=== PATIENT | male | born 1960 | race Hispanic/Latino ===

== ENCOUNTER 2021-04-26 05:38 | Inpatient (IN) | payer OTHER ==
[2021-04-26 06:21] LABS: #Eosinphils 0.2 10x3/uL (0.0-0.5); #Monocytes 0.7 10x3/uL (0.0-1.1); #Neutrophils 7.7 10x3/uL (1.5-8.4); %Basophils 0.2 % (0.0-2.0); %Eosinophils 2.1 % (0.0-6.0); %Monocytes 7.5 % (0.0-10.0); %Neutrophils 77.7 % (40.0-75.0); Hemoglobin 10.3 g/dL (13.5-17.5); Mean Corpuscular Hemoglobin 31.4 pg (27.0-33.0); Mean Corpuscular Volume 87.2 fl (81.2-95.1); Mean Platelet Volume 10.2 fl (7.4-10.4); Platelet Count 79 10x3/uL (150-450); RBC Distribution Width 15.3 % (11.5-14.5); Red Blood Cell (RBC) Count 3.28 10x6/uL (4.32-5.72); White Blood Cell (WBC) Count 9.9 10x3/uL (3.5-10.5)
[2021-04-26] MEDS ORDERED: Ketorolac Tromethamine 30 MG/ML VIAL ONE (06:24)
[2021-04-26 06:34] LABS: ALT (SGPT) 23 U/L (8-55); AST (SGOT) 24 U/L (5-34); Alkaline Phosphatase 151 U/L (40-110); Anion Gap 15 mmol/L (10-20); BUN (Urea Nitrogen) 18 mg/dL (8.4-25.7); Bilirubin, Total 2.7 mg/dL (0.2-1.2); CK (CPK) 49 U/L (30-200); Calc. Creatinine Clearance 0 mL/min (70-130); Calcium 8.5 mg/dL (7.8-10.44); Carbon Dioxide 17 mmol/L (22-29); Chloride 105 mmol/L (98-107); Globulin 3.9 g/dL (2.4-3.5); Glucose 201 mg/dL (70-105); Potassium 3.9 mmol/L (3.5-5.1); Protein, Total 6.9 g/dL (6.0-8.3); Sodium 133 mmol/L (136-145)
[2021-04-26] MEDS ORDERED: cefTRIAXone\\ROCEPHIN 1 GM VIAL ONE ×2 (06:48→07:45)
[2021-04-26] MEDS ORDERED: Insulin Regular 300 UNITS/3 ML VIAL ONE (08:12)
[2021-04-26 08:29] LABS: SARS-CoV-2 NAA Rapid Test Not Detected (NotDetected)
[2021-04-26 09:14] LABS: Lactic Acid 2.3 mmol/L (0.5-2.2)
[2021-04-26] MEDS ORDERED: Dextrose 50% Abboject 50 ML SYRINGE SLOW IVP PRN (12:51)
[2021-04-26] MEDS ORDERED: Dextrose 5% in Water 1,000 ML IV PRN (12:51)
[2021-04-26] MEDS ORDERED: Benzonatate 100 MG CAP PO PRN (12:52)
[2021-04-26] MEDS ORDERED: Electrolyte Replacement Protocol 1 EACH FS SCH (13:00)
[2021-04-26] MEDS ORDERED: Sodium Chloride 0.9% 1,000 ML IV SCH (13:00)
[2021-04-26] MEDS: Furosemide 20 MG TAB PO SCH (16:57)
[2021-04-26 17:12] VITALS: BMI 31.1
[2021-04-26] MEDS: HumaLOG 300 UNITS/3 ML VIAL SC PRN (21:04)
[2021-04-27] MEDS: HumaLOG 300 UNITS/3 ML VIAL SC PRN ×5 (00:04→22:36)
[2021-04-27 04:21] LABS: Lactic Acid 2.2 mmol/L (0.5-2.2)
[2021-04-27 04:24] LABS: ALT (SGPT) 18 U/L (8-55); AST (SGOT) 21 U/L (5-34); Albumin 2.7 g/dL (3.5-5.0); Alkaline Phosphatase 132 U/L (40-110); Anion Gap 13 mmol/L (10-20); BUN (Urea Nitrogen) 13 mg/dL (8.4-25.7); Bilirubin, Total 1.9 mg/dL (0.2-1.2); Calc. Creatinine Clearance 115 mL/min (70-130); Carbon Dioxide 18 mmol/L (22-29); Cardiac Risk 2.9 (Less than 4.5); Chloride 107 mmol/L (98-107); Cholesterol 88 mg/dl (< 200 Desired); Globulin 3.4 g/dL (2.4-3.5); Glucose 285 mg/dL (70-105); HDL Cholesterol 30 mg/dL (>60 Neg Risk); LDL Cholesterol, Calculated 42 mg/dL; Magnesium 1.3 mg/dL (1.6-2.6); Potassium 3.7 mmol/L (3.5-5.1); Protein, Total 6.1 g/dL (6.0-8.3); Sodium 134 mmol/L (136-145); Triglycerides 78 mg/dL (Less than 150)
[2021-04-27 04:28] LABS: Phosphorus 1.9 mg/dL (2.3-4.7)
[2021-04-27] MEDS ORDERED: Magnesium Sulfate 4 GM in Sodium Chloride 0.9% 250 ML 250 ML IVPB SCH ×2 (05:00→09:15)
[2021-04-27] MEDS: PHOS-NAK 1 PKT PACK PO SCH ×2 (05:23→09:45)
[2021-04-27] MEDS: Furosemide 20 MG TAB PO SCH ×2 (09:43→13:20)
[2021-04-27] MEDS: Propranolol 10 MG TAB PO SCH (09:44)
[2021-04-27] MEDS: Aspirin 81 mg Enteric Coated Tablet PO SCH (09:44)
[2021-04-27] MEDS: Doxycycline 100 MG CAP PO SCH ×2 (09:44→22:28)
[2021-04-27] MEDS: Potassium Bicarbonate/Cit Ac 20 MEQ TAB PO SCH (09:45)
[2021-04-27] MEDS: Magnesium 2 GM/50 ML 2 GM in Premix Bag 1 BAG IVPB SCH ×2 (10:07→11:57)
[2021-04-27] MEDS ORDERED: Fluconazole In NaCl,Iso-Osm 100 MG in Admixture Fee 1 EACH IVPB SCH (10:30)
[2021-04-27] MEDS ORDERED: Lantus 1000 UNITS/10 ML VIAL SC SCH (13:00)
[2021-04-27] MEDS: cefTRIAXone\\ROCEPHIN 1 GM in Sodium Chloride 0.9% 100 ML IVPB SCH (13:20)
[2021-04-27] MEDS: Fluconazole In NaCl,Iso-Osm 100 MG in Admixture Fee 1 EACH IVPB SCH (14:27)
[2021-04-27] MEDS ORDERED: metFORMIN 500 MG TAB PO SCH (17:00)
[2021-04-27] MEDS: HumaLOG 300 UNITS/3 ML VIAL SC SCH (19:00)
[2021-04-28] MEDS: HumaLOG 300 UNITS/3 ML VIAL SC PRN ×2 (05:44→16:45)
[2021-04-28] MEDS: Acetaminophen 325 MG TAB PO PRN (05:44)
[2021-04-28 09:37] LABS: ALT (SGPT) 28 U/L (8-55); AST (SGOT) 43 U/L (5-34); Albumin 2.9 g/dL (3.5-5.0); Alkaline Phosphatase 189 U/L (40-110); Anion Gap 13 mmol/L (10-20); BUN (Urea Nitrogen) 12 mg/dL (8.4-25.7); Bilirubin, Total 1.9 mg/dL (0.2-1.2); Calc. Creatinine Clearance 114 mL/min (70-130); Calcium 8.3 mg/dL (7.8-10.44); Carbon Dioxide 19 mmol/L (22-29); Chloride 104 mmol/L (98-107); Globulin 4.2 g/dL (2.4-3.5); Glucose 297 mg/dL (70-105); Magnesium 1.8 mg/dL (1.6-2.6); Potassium 4.3 mmol/L (3.5-5.1); Protein, Total 7.1 g/dL (6.0-8.3); Sodium 132 mmol/L (136-145)
[2021-04-28] MEDS: Lantus 1000 UNITS/10 ML VIAL SC SCH ×2 (09:43→21:47)
[2021-04-28] MEDS: Propranolol 10 MG TAB PO SCH (09:44)
[2021-04-28] MEDS: Aspirin 81 mg Enteric Coated Tablet PO SCH (09:44)
[2021-04-28] MEDS: Doxycycline 100 MG CAP PO SCH ×2 (09:44→21:47)
[2021-04-28] MEDS: Furosemide 20 MG TAB PO SCH ×2 (09:44→13:33)
[2021-04-28 09:48] LABS: Phosphorus 1.7 mg/dL (2.3-4.7)
[2021-04-28] MEDS: HumaLOG 300 UNITS/3 ML VIAL SC SCH ×3 (09:54→16:46)
[2021-04-28] MEDS: Potassium Bicarbonate/Cit Ac 20 MEQ TAB PO SCH (09:54)
[2021-04-28 10:14] LABS: #Eosinphils 0.5 10x3/uL (0.0-0.5); #Monocytes 0.7 10x3/uL (0.0-1.1); #Neutrophils 4.8 10x3/uL (1.5-8.4); %Basophils 0.3 % (0.0-2.0); %Eosinophils 6.7 % (0.0-6.0); %Lymphocytes 16.9 % (18.0-47.0); %Monocytes 9.8 % (0.0-10.0); %Neutrophils 66.2 % (40.0-75.0); Hemoglobin 11.3 g/dL (13.5-17.5); Mean Corpuscular HGB CONC 36.2 g/dL (32.0-36.0); Mean Corpuscular Hemoglobin 31.7 pg (27.0-33.0); Mean Corpuscular Volume 87.4 fl (81.2-95.1); Mean Platelet Volume 9.8 fl (7.4-10.4); Platelet Count 89 10x3/uL (150-450); RBC Distribution Width 15.3 % (11.5-14.5); Red Blood Cell (RBC) Count 3.57 10x6/uL (4.32-5.72); White Blood Cell (WBC) Count 7.3 10x3/uL (3.5-10.5)
[2021-04-28] MEDS ORDERED: PHOS-NAK 1 PKT PACK PO SCH (11:00)
[2021-04-28] MEDS: Fluconazole In NaCl,Iso-Osm 100 MG in Admixture Fee 1 EACH IVPB SCH (12:14)
[2021-04-28] MEDS: cefTRIAXone\\ROCEPHIN 1 GM in Sodium Chloride 0.9% 100 ML IVPB SCH (12:20)
[2021-04-28] MEDS ORDERED: Magnesium 2 GM/50 ML 2 GM in Premix Bag 1 BAG IVPB SCH (13:00)
[2021-04-28] MEDS: PHOS-NAK 1 PKT PACK PO SCH ×2 (13:34→21:47)
[2021-04-28] MEDS: Magnesium Oxide 400 MG TAB PO SCH (13:34)
[2021-04-29] MEDS: HumaLOG 300 UNITS/3 ML VIAL SC PRN ×4 (06:13→21:53)
[2021-04-29 06:17] LABS: ALT (SGPT) 27 U/L (8-55); AST (SGOT) 38 U/L (5-34); Albumin 2.7 g/dL (3.5-5.0); Alkaline Phosphatase 204 U/L (40-110); Anion Gap 14 mmol/L (10-20); BUN (Urea Nitrogen) 11 mg/dL (8.4-25.7); Bilirubin, Total 1.7 mg/dL (0.2-1.2); Calc. Creatinine Clearance 115 mL/min (70-130); Calcium 8.1 mg/dL (7.8-10.44); Carbon Dioxide 16 mmol/L (22-29); Chloride 104 mmol/L (98-107); Globulin 3.9 g/dL (2.4-3.5); Glucose 353 mg/dL (70-105); Magnesium 1.5 mg/dL (1.6-2.6); Potassium 4.6 mmol/L (3.5-5.1); Protein, Total 6.6 g/dL (6.0-8.3); Sodium 129 mmol/L (136-145)
[2021-04-29 06:36] LABS: #Eosinphils 0.5 10x3/uL (0.0-0.5); #Monocytes 0.6 10x3/uL (0.0-1.1); %Basophils 0.2 % (0.0-2.0); %Eosinophils 7.9 % (0.0-6.0); %Lymphocytes 16.4 % (18.0-47.0); %Monocytes 9.5 % (0.0-10.0); %Neutrophils 65.8 % (40.0-75.0); Hemoglobin 9.7 g/dL (13.5-17.5); Mean Corpuscular HGB CONC 35.5 g/dL (32.0-36.0); Mean Corpuscular Hemoglobin 32.1 pg (27.0-33.0); Mean Corpuscular Volume 90.4 fl (81.2-95.1); Mean Platelet Volume 9.6 fl (7.4-10.4); Platelet Count 96 10x3/uL (150-450); RBC Distribution Width 15.2 % (11.5-14.5); Red Blood Cell (RBC) Count 3.02 10x6/uL (4.32-5.72); White Blood Cell (WBC) Count 6.1 10x3/uL (3.5-10.5)
[2021-04-29 06:39] LABS: HIV (1/2) Antibody/Antigen Non-Reactive (NonReactive); HIV 1/2 INDEX 0.19 S/CO (<1.00)
[2021-04-29] MEDS ORDERED: Magnesium 2 GM/50 ML 2 GM in Premix Bag 1 BAG IVPB SCH ×2 (06:45→11:00)
[2021-04-29] MEDS: Propranolol 10 MG TAB PO SCH (09:41)
[2021-04-29] MEDS: Furosemide 20 MG TAB PO SCH ×2 (09:41→17:12)
[2021-04-29] MEDS: HumaLOG 300 UNITS/3 ML VIAL SC SCH ×3 (09:44→17:13)
[2021-04-29] MEDS: Lantus 1000 UNITS/10 ML VIAL SC SCH ×2 (09:44→21:52)
[2021-04-29] MEDS: PHOS-NAK 1 PKT PACK PO SCH ×3 (09:45→21:51)
[2021-04-29 09:54] LABS: Phosphorus 1.7 mg/dL (2.3-4.7)
[2021-04-29] MEDS: Potassium Bicarbonate/Cit Ac 20 MEQ TAB PO SCH (10:59)
[2021-04-29] MEDS: Aspirin 81 mg Enteric Coated Tablet PO SCH (10:59)
[2021-04-29] MEDS: Doxycycline 100 MG CAP PO SCH ×2 (10:59→21:52)
[2021-04-29] MEDS: cefTRIAXone\\ROCEPHIN 1 GM in Sodium Chloride 0.9% 100 ML IVPB SCH (11:38)
[2021-04-29] MEDS: Magnesium Oxide 400 MG TAB PO SCH (11:40)
[2021-04-29] MEDS: Fluconazole In NaCl,Iso-Osm 100 MG in Admixture Fee 1 EACH IVPB SCH (11:57)
[2021-04-29 16:55] LABS: HBCM Index 0.09 S/CO (0-0.79); HBSAg Index 0.24 S/CO (0-0.99); Hep A IgM AB Non-Reactive (NonReactive); Hep A IgM S/CO 0.41 S/CO (0-0.79); Hep B Surf Ag Non-Reactive S/CO (NonReactive); Hepatitis B Core IgM Abs Non-Reactive (NonReactive)
[2021-04-29 18:33] LABS: Hep C IgG Ab Reflex HepC Qnt (NonReactive); Hep C Index 13.15 S/CO (0-0.79)
[2021-04-30 03:57] LABS: #Eosinphils 0.5 10x3/uL (0.0-0.5); #Monocytes 0.5 10x3/uL (0.0-1.1); #Neutrophils 2.5 10x3/uL (1.5-8.4); %Basophils 0.2 % (0.0-2.0); %Eosinophils 11.7 % (0.0-6.0); %Monocytes 10.4 % (0.0-10.0); %Neutrophils 57.2 % (40.0-75.0); Hemoglobin 8.9 g/dL (13.5-17.5); Mean Corpuscular Hemoglobin 30.8 pg (27.0-33.0); Mean Corpuscular Volume 87.9 fl (81.2-95.1); Mean Platelet Volume 9.8 fl (7.4-10.4); Platelet Count 81 10x3/uL (150-450); RBC Distribution Width 14.8 % (11.5-14.5); Red Blood Cell (RBC) Count 2.89 10x6/uL (4.32-5.72); White Blood Cell (WBC) Count 4.4 10x3/uL (3.5-10.5)
[2021-04-30 04:12] LABS: Phosphorus 2.3 mg/dL (2.3-4.7)
[2021-04-30 04:20] LABS: ALT (SGPT) 31 U/L (8-55); AST (SGOT) 42 U/L (5-34); Albumin 2.6 g/dL (3.5-5.0); Alkaline Phosphatase 223 U/L (40-110); Anion Gap 12 mmol/L (10-20); BUN (Urea Nitrogen) 10 mg/dL (8.4-25.7); Bilirubin, Total 1.5 mg/dL (0.2-1.2); Calc. Creatinine Clearance 119 mL/min (70-130); Calcium 7.8 mg/dL (7.8-10.44); Carbon Dioxide 20 mmol/L (22-29); Chloride 104 mmol/L (98-107); Globulin 3.3 g/dL (2.4-3.5); Glucose 362 mg/dL (70-105); Magnesium 1.5 mg/dL (1.6-2.6); Potassium 4.2 mmol/L (3.5-5.1); Protein, Total 5.9 g/dL (6.0-8.3); Sodium 132 mmol/L (136-145)
[2021-04-30] MEDS ORDERED: Magnesium 2 GM/50 ML 2 GM in Premix Bag 1 BAG IVPB SCH (05:30)
[2021-04-30] MEDS: HumaLOG 300 UNITS/3 ML VIAL SC PRN ×3 (05:56→20:54)
[2021-04-30 06:53] LABS: Strep pneumo Urine Ag NEGATIVE (NEGATIVE)
[2021-04-30 06:59] LABS: Platelet Morphology Comment Appears Decreased
[2021-04-30] MEDS: Aspirin 81 mg Enteric Coated Tablet PO SCH (11:05)
[2021-04-30] MEDS: Doxycycline 100 MG CAP PO SCH ×2 (11:05→20:53)
[2021-04-30] MEDS: Propranolol 10 MG TAB PO SCH (11:05)
[2021-04-30] MEDS: PHOS-NAK 1 PKT PACK PO SCH ×3 (11:05→20:54)
[2021-04-30] MEDS: Amlodipine 5 MG TAB PO SCH (11:05)
[2021-04-30] MEDS: Lisinopril 5 MG TAB PO SCH (11:05)
[2021-04-30] MEDS: Furosemide 20 MG TAB PO SCH ×2 (11:05→13:36)
[2021-04-30] MEDS: Potassium Bicarbonate/Cit Ac 20 MEQ TAB PO SCH (11:06)
[2021-04-30] MEDS: HumaLOG 300 UNITS/3 ML VIAL SC SCH ×3 (11:06→18:33)
[2021-04-30] MEDS: Lantus 1000 UNITS/10 ML VIAL SC SCH ×2 (11:06→20:53)
[2021-04-30] MEDS: Magnesium Oxide 400 MG TAB PO SCH (13:35)
[2021-04-30] MEDS: cefTRIAXone\\ROCEPHIN 1 GM in Sodium Chloride 0.9% 100 ML IVPB SCH (15:46)
[2021-04-30 16:10] LABS: L.pneumophilia Abs <0.91 OD ratio (0.00-0.90)
[2021-04-30] MEDS: Fluconazole In NaCl,Iso-Osm 100 MG in Admixture Fee 1 EACH IVPB SCH (16:56)
[2021-04-30 23:36] LABS: QuantiFERON-TB Gold Plus POSITIVE (Negative)
[2021-05-01] MEDS: Acetaminophen 325 MG TAB PO PRN ×2 (01:16→09:29)
[2021-05-01 05:33] LABS: #Eosinphils 0.7 10x3/uL (0.0-0.5); #Monocytes 0.6 10x3/uL (0.0-1.1); #Neutrophils 3.3 10x3/uL (1.5-8.4); %Basophils 0.5 % (0.0-2.0); %Eosinophils 12.6 % (0.0-6.0); %Lymphocytes 16.7 % (18.0-47.0); %Monocytes 9.9 % (0.0-10.0); %Neutrophils 60.1 % (40.0-75.0); Hemoglobin 11.6 g/dL (13.5-17.5); Mean Corpuscular HGB CONC 35.9 g/dL (32.0-36.0); Mean Corpuscular Hemoglobin 31.5 pg (27.0-33.0); Mean Corpuscular Volume 87.8 fl (81.2-95.1); Mean Platelet Volume 9.4 fl (7.4-10.4); Platelet Count 96 10x3/uL (150-450); Platelet Morphology Comment Appears Decreased; RBC Distribution Width 15.1 % (11.5-14.5); Red Blood Cell (RBC) Count 3.68 10x6/uL (4.32-5.72); White Blood Cell (WBC) Count 5.6 10x3/uL (3.5-10.5)
[2021-05-01 06:13] LABS: ALT (SGPT) 35 U/L (8-55); AST (SGOT) 47 U/L (5-34); Albumin 3.2 g/dL (3.5-5.0); Alkaline Phosphatase 249 U/L (40-110); Anion Gap 14 mmol/L (10-20); BUN (Urea Nitrogen) 10 mg/dL (8.4-25.7); Bilirubin, Total 1.7 mg/dL (0.2-1.2); Calc. Creatinine Clearance 124 mL/min (70-130); Calcium 8.8 mg/dL (7.8-10.44); Carbon Dioxide 19 mmol/L (22-29); Chloride 106 mmol/L (98-107); Globulin 4.4 g/dL (2.4-3.5); Glucose 197 mg/dL (70-105); Potassium 4.5 mmol/L (3.5-5.1); Protein, Total 7.6 g/dL (6.0-8.3); Sodium 134 mmol/L (136-145)
[2021-05-01] MEDS: HumaLOG 300 UNITS/3 ML VIAL SC PRN ×2 (06:15→17:10)
[2021-05-01] MEDS: Furosemide 20 MG TAB PO SCH ×2 (09:29→13:38)
[2021-05-01] MEDS: PHOS-NAK 1 PKT PACK PO SCH ×3 (09:30→21:22)
[2021-05-01] MEDS: Doxycycline 100 MG CAP PO SCH ×2 (09:30→21:22)
[2021-05-01] MEDS: Aspirin 81 mg Enteric Coated Tablet PO SCH (09:30)
[2021-05-01] MEDS: Propranolol 10 MG TAB PO SCH (09:30)
[2021-05-01] MEDS: Amlodipine 5 MG TAB PO SCH ×2 (09:30→10:02)
[2021-05-01] MEDS: Lisinopril 5 MG TAB PO SCH ×2 (09:30→10:02)
[2021-05-01] MEDS: HumaLOG 300 UNITS/3 ML VIAL SC SCH ×3 (09:31→20:01)
[2021-05-01] MEDS: Potassium Bicarbonate/Cit Ac 20 MEQ TAB PO SCH (09:31)
[2021-05-01] MEDS: Lantus 1000 UNITS/10 ML VIAL SC SCH ×2 (09:32→21:23)
[2021-05-01] MEDS: cefTRIAXone\\ROCEPHIN 1 GM in Sodium Chloride 0.9% 100 ML IVPB SCH (12:27)
[2021-05-01] MEDS: Fluconazole 100 MG TAB PO SCH (12:28)
[2021-05-01] MEDS: Magnesium Oxide 400 MG TAB PO SCH (12:29)
[2021-05-01 16:39] LABS: Mycoplasma pneumoniae IgG AB 316 U/mL (0-99); Mycoplasma pneumoniae IgM AB Less than 770 U/mL (0-769)
[2021-05-02 04:12] LABS: Platelet Count 89 10x3/uL (150-450)
[2021-05-02 04:13] LABS: Hemoglobin 11.4 g/dL (13.5-17.5); Mean Corpuscular HGB CONC 35.4 g/dL (32.0-36.0); Mean Corpuscular Hemoglobin 31.9 pg (27.0-33.0); Mean Corpuscular Volume 90.2 fl (81.2-95.1); Mean Platelet Volume 10.4 fl (7.4-10.4); RBC Distribution Width 15.4 % (11.5-14.5); Red Blood Cell (RBC) Count 3.57 10x6/uL (4.32-5.72); White Blood Cell (WBC) Count 4.3 10x3/uL (3.5-10.5)
[2021-05-02 04:14] LABS: #Basophils 0.1 10x3/uL (0.0-0.2); #Eosinphils 0.6 10x3/uL (0.0-0.5); #Monocytes 0.4 10x3/uL (0.0-1.1); #Neutrophils 2.2 10x3/uL (1.5-8.4); %Basophils 1.2 % (0.0-2.0); %Eosinophils 14.2 % (0.0-6.0); %Monocytes 10.5 % (0.0-10.0); %Neutrophils 53.6 % (40.0-75.0)
[2021-05-02 04:15] LABS: Platelet Morphology Comment Appears Decreased
[2021-05-02 04:17] LABS: ALT (SGPT) 34 U/L (8-55); AST (SGOT) 44 U/L (5-34); Albumin 2.9 g/dL (3.5-5.0); Alkaline Phosphatase 246 U/L (40-110); Anion Gap 14 mmol/L (10-20); BUN (Urea Nitrogen) 12 mg/dL (8.4-25.7); Bilirubin, Total 1.5 mg/dL (0.2-1.2); Calc. Creatinine Clearance 129 mL/min (70-130); Calcium 8.7 mg/dL (7.8-10.44); Carbon Dioxide 21 mmol/L (22-29); Chloride 104 mmol/L (98-107); Globulin 4.1 g/dL (2.4-3.5); Glucose 270 mg/dL (70-105); Potassium 4.6 mmol/L (3.5-5.1); Sodium 134 mmol/L (136-145)
[2021-05-02] MEDS: HumaLOG 300 UNITS/3 ML VIAL SC PRN ×4 (05:47→21:35)
[2021-05-02] MEDS: Amlodipine 5 MG TAB PO SCH (08:42)
[2021-05-02] MEDS: Potassium Bicarbonate/Cit Ac 20 MEQ TAB PO SCH (08:42)
[2021-05-02] MEDS: Propranolol 10 MG TAB PO SCH (08:42)
[2021-05-02] MEDS: Aspirin 81 mg Enteric Coated Tablet PO SCH (08:42)
[2021-05-02] MEDS: Furosemide 20 MG TAB PO SCH ×2 (08:42→12:52)
[2021-05-02] MEDS: Lisinopril 5 MG TAB PO SCH (08:42)
[2021-05-02] MEDS: PHOS-NAK 1 PKT PACK PO SCH ×3 (08:42→21:35)
[2021-05-02] MEDS: Doxycycline 100 MG CAP PO SCH ×2 (08:43→21:35)
[2021-05-02] MEDS: Lantus 1000 UNITS/10 ML VIAL SC SCH ×2 (08:46→21:35)
[2021-05-02] MEDS: HumaLOG 300 UNITS/3 ML VIAL SC SCH ×3 (08:47→16:37)
[2021-05-02] MEDS: cefTRIAXone\\ROCEPHIN 1 GM in Sodium Chloride 0.9% 100 ML IVPB SCH (12:51)
[2021-05-02] MEDS: Fluconazole 100 MG TAB PO SCH (12:52)
[2021-05-02] MEDS: Magnesium Oxide 400 MG TAB PO SCH (12:52)
[2021-05-03 05:14] LABS: #Eosinphils 0.7 10x3/uL (0.0-0.5); #Monocytes 0.4 10x3/uL (0.0-1.1); #Neutrophils 2.3 10x3/uL (1.5-8.4); %Basophils 0.4 % (0.0-2.0); %Eosinophils 14.4 % (0.0-6.0); %Lymphocytes 26.6 % (18.0-47.0); %Monocytes 8.5 % (0.0-10.0); %Neutrophils 49.7 % (40.0-75.0); Hemoglobin 10.6 g/dL (13.5-17.5); Mean Corpuscular HGB CONC 35.1 g/dL (32.0-36.0); Mean Corpuscular Hemoglobin 31.1 pg (27.0-33.0); Mean Corpuscular Volume 88.6 fl (81.2-95.1); Platelet Count 101 10x3/uL (150-450); Red Blood Cell (RBC) Count 3.41 10x6/uL (4.32-5.72); White Blood Cell (WBC) Count 4.6 10x3/uL (3.5-10.5)
[2021-05-03 05:28] LABS: Anion Gap 13 mmol/L (10-20); BUN (Urea Nitrogen) 12 mg/dL (8.4-25.7); Calc. Creatinine Clearance 124 mL/min (70-130); Calcium 8.7 mg/dL (7.8-10.44); Carbon Dioxide 23 mmol/L (22-29); Chloride 104 mmol/L (98-107); Glucose 340 mg/dL (70-105); Magnesium 1.6 mg/dL (1.6-2.6); Potassium 4.8 mmol/L (3.5-5.1); Sodium 135 mmol/L (136-145)
[2021-05-03] MEDS ORDERED: Magnesium 2 GM/50 ML 2 GM in Premix Bag 1 BAG IVPB SCH (06:00)
[2021-05-03] MEDS: HumaLOG 300 UNITS/3 ML VIAL SC PRN ×3 (06:38→16:32)
[2021-05-03] MEDS: Potassium Bicarbonate/Cit Ac 20 MEQ TAB PO SCH (09:25)
[2021-05-03] MEDS: Doxycycline 100 MG CAP PO SCH ×2 (09:25→21:25)
[2021-05-03] MEDS: PHOS-NAK 1 PKT PACK PO SCH ×3 (09:25→21:25)
[2021-05-03] MEDS: Furosemide 20 MG TAB PO SCH ×2 (09:25→13:02)
[2021-05-03] MEDS: Amlodipine 5 MG TAB PO SCH (09:25)
[2021-05-03] MEDS: Propranolol 10 MG TAB PO SCH (09:25)
[2021-05-03] MEDS: Lantus 1000 UNITS/10 ML VIAL SC SCH ×2 (09:26→21:25)
[2021-05-03] MEDS: Aspirin 81 mg Enteric Coated Tablet PO SCH (09:26)
[2021-05-03] MEDS: Lisinopril 5 MG TAB PO SCH (09:26)
[2021-05-03] MEDS: HumaLOG 300 UNITS/3 ML VIAL SC SCH ×3 (09:27→16:32)
[2021-05-03 11:36] LABS: Hep C PCR-Quant HCV Not Detected IU/mL (.)
[2021-05-03] MEDS: cefTRIAXone\\ROCEPHIN 1 GM in Sodium Chloride 0.9% 100 ML IVPB SCH (12:46)
[2021-05-03] MEDS: Magnesium Oxide 400 MG TAB PO SCH (12:48)
[2021-05-03] MEDS: Fluconazole 100 MG TAB PO SCH (12:49)
[2021-05-03] MEDS ORDERED: Loratadine 5 MG/5 ML UDCUP PO PRN (15:27)
[2021-05-03] MEDS: metFORMIN 500 MG TAB PO SCH (18:44)
[2021-05-04 04:54] LABS: Anion Gap 11 mmol/L (10-20); BUN (Urea Nitrogen) 12 mg/dL (8.4-25.7); Calc. Creatinine Clearance 134 mL/min (70-130); Calcium 8.5 mg/dL (7.8-10.44); Carbon Dioxide 22 mmol/L (22-29); Chloride 104 mmol/L (98-107); Glucose 238 mg/dL (70-105); Potassium 4.4 mmol/L (3.5-5.1); Sodium 133 mmol/L (136-145)
[2021-05-04 05:09] LABS: #Eosinphils 0.8 10x3/uL (0.0-0.5); #Monocytes 0.3 10x3/uL (0.0-1.1); %Basophils 0.5 % (0.0-2.0); %Eosinophils 13.9 % (0.0-6.0); %Neutrophils 54.4 % (40.0-75.0); Hemoglobin 11.2 g/dL (13.5-17.5); Mean Corpuscular HGB CONC 35.6 g/dL (32.0-36.0); Mean Corpuscular Hemoglobin 31.3 pg (27.0-33.0); Mean Platelet Volume 9.8 fl (7.4-10.4); Platelet Count 122 10x3/uL (150-450); RBC Distribution Width 14.8 % (11.5-14.5); Red Blood Cell (RBC) Count 3.58 10x6/uL (4.32-5.72); White Blood Cell (WBC) Count 5.5 10x3/uL (3.5-10.5)
[2021-05-04] MEDS: Amlodipine 5 MG TAB PO SCH (09:16)
[2021-05-04] MEDS: Lisinopril 5 MG TAB PO SCH (09:16)
[2021-05-04] MEDS: Furosemide 20 MG TAB PO SCH ×2 (09:16→12:36)
[2021-05-04] MEDS: metFORMIN 500 MG TAB PO SCH ×2 (09:16→17:59)
[2021-05-04] MEDS: Doxycycline 100 MG CAP PO SCH ×2 (09:16→20:59)
[2021-05-04] MEDS: Propranolol 10 MG TAB PO SCH (09:16)
[2021-05-04] MEDS: Aspirin 81 mg Enteric Coated Tablet PO SCH (09:16)
[2021-05-04] MEDS: PHOS-NAK 1 PKT PACK PO SCH ×3 (09:16→21:00)
[2021-05-04] MEDS: Potassium Bicarbonate/Cit Ac 20 MEQ TAB PO SCH (09:16)
[2021-05-04] MEDS: HumaLOG 300 UNITS/3 ML VIAL SC SCH ×3 (09:21→18:00)
[2021-05-04] MEDS: Lantus 1000 UNITS/10 ML VIAL SC SCH ×2 (09:21→21:04)
[2021-05-04] MEDS: Fluconazole 100 MG TAB PO SCH (12:36)
[2021-05-04] MEDS: Magnesium Oxide 400 MG TAB PO SCH (12:36)
[2021-05-04] MEDS: HumaLOG 300 UNITS/3 ML VIAL SC PRN (12:37)
[2021-05-04] MEDS: cefTRIAXone\\ROCEPHIN 1 GM in Sodium Chloride 0.9% 100 ML IVPB SCH (14:19)
[2021-05-05] MEDS: HumaLOG 300 UNITS/3 ML VIAL SC PRN ×3 (05:14→16:29)
[2021-05-05] MEDS: metFORMIN 500 MG TAB PO SCH ×2 (08:01→16:28)
[2021-05-05] MEDS: Doxycycline 100 MG CAP PO SCH ×2 (08:02→20:44)
[2021-05-05] MEDS: Amlodipine 5 MG TAB PO SCH (08:02)
[2021-05-05] MEDS: Propranolol 10 MG TAB PO SCH (08:02)
[2021-05-05] MEDS: PHOS-NAK 1 PKT PACK PO SCH ×3 (08:02→20:44)
[2021-05-05] MEDS: Furosemide 20 MG TAB PO SCH ×2 (08:02→14:38)
[2021-05-05] MEDS: Potassium Bicarbonate/Cit Ac 20 MEQ TAB PO SCH (08:02)
[2021-05-05] MEDS: Lisinopril 5 MG TAB PO SCH (08:02)
[2021-05-05] MEDS: Aspirin 81 mg Enteric Coated Tablet PO SCH (08:03)
[2021-05-05] MEDS: Lantus 1000 UNITS/10 ML VIAL SC SCH ×2 (08:06→21:01)
[2021-05-05] MEDS: HumaLOG 300 UNITS/3 ML VIAL SC SCH ×3 (08:06→16:28)
[2021-05-05] MEDS ORDERED: Tuberculin PPD 0.1 ML VIAL I-DERMAL SCH (09:30)
[2021-05-05] MEDS: Magnesium Oxide 400 MG TAB PO SCH (12:46)
[2021-05-05] MEDS: cefTRIAXone\\ROCEPHIN 1 GM in Sodium Chloride 0.9% 100 ML IVPB SCH ×2 (16:18→18:09)
[2021-05-05] MEDS: Amoxicillin/Potassium Clav 875 MG TAB PO SCH (20:44)
[2021-05-06] MEDS: metFORMIN 500 MG TAB PO SCH ×2 (08:33→17:56)
[2021-05-06] MEDS: Amoxicillin/Potassium Clav 875 MG TAB PO SCH ×2 (08:33→21:06)
[2021-05-06] MEDS: Furosemide 20 MG TAB PO SCH ×2 (08:33→15:57)
[2021-05-06] MEDS: Aspirin 81 mg Enteric Coated Tablet PO SCH (08:33)
[2021-05-06] MEDS: Lisinopril 5 MG TAB PO SCH (08:33)
[2021-05-06] MEDS: Propranolol 10 MG TAB PO SCH (08:33)
[2021-05-06] MEDS: PHOS-NAK 1 PKT PACK PO SCH ×3 (08:33→21:07)
[2021-05-06] MEDS: Potassium Bicarbonate/Cit Ac 20 MEQ TAB PO SCH (08:33)
[2021-05-06] MEDS: Amlodipine 5 MG TAB PO SCH (08:33)
[2021-05-06] MEDS: Doxycycline 100 MG CAP PO SCH ×2 (08:33→21:06)
[2021-05-06] MEDS: Lantus 1000 UNITS/10 ML VIAL SC SCH ×2 (08:37→21:06)
[2021-05-06] MEDS: HumaLOG 300 UNITS/3 ML VIAL SC SCH ×3 (08:37→17:57)
[2021-05-06 11:38] LABS: Magnesium 1.8 mg/dL (1.6-2.6)
[2021-05-06] MEDS: Magnesium Oxide 400 MG TAB PO SCH (12:14)
[2021-05-06] MEDS ORDERED: Magnesium 2 GM/50 ML 2 GM in Premix Bag 1 BAG IVPB SCH (13:00)
[2021-05-07 05:27] LABS: Magnesium 1.7 mg/dL (1.6-2.6)
[2021-05-07] MEDS ORDERED: Magnesium 2 GM/50 ML 2 GM in Premix Bag 1 BAG IVPB SCH (06:00)
[2021-05-07] MEDS: metFORMIN 500 MG TAB PO SCH ×2 (09:26→16:45)
[2021-05-07] MEDS: Potassium Bicarbonate/Cit Ac 20 MEQ TAB PO SCH (09:26)
[2021-05-07] MEDS: Amoxicillin/Potassium Clav 875 MG TAB PO SCH ×2 (09:26→20:31)
[2021-05-07] MEDS: Doxycycline 100 MG CAP PO SCH (09:26)
[2021-05-07] MEDS: Amlodipine 5 MG TAB PO SCH (09:26)
[2021-05-07] MEDS: Propranolol 10 MG TAB PO SCH (09:26)
[2021-05-07] MEDS: Lisinopril 5 MG TAB PO SCH (09:26)
[2021-05-07] MEDS: Aspirin 81 mg Enteric Coated Tablet PO SCH (09:26)
[2021-05-07] MEDS: Furosemide 20 MG TAB PO SCH ×2 (09:26→16:45)
[2021-05-07] MEDS: PHOS-NAK 1 PKT PACK PO SCH ×3 (09:27→20:31)
[2021-05-07] MEDS: HumaLOG 300 UNITS/3 ML VIAL SC SCH ×3 (09:30→16:46)
[2021-05-07] MEDS: Lantus 1000 UNITS/10 ML VIAL SC SCH ×2 (09:32→20:32)
[2021-05-07] MEDS: HumaLOG 300 UNITS/3 ML VIAL SC PRN ×2 (12:03→16:46)
[2021-05-07] MEDS: Magnesium Oxide 400 MG TAB PO SCH (12:03)
[2021-05-08 03:49] LABS: Magnesium 1.6 mg/dL (1.6-2.6)
[2021-05-08] MEDS ORDERED: Magnesium 2 GM/50 ML 2 GM in Premix Bag 1 BAG IVPB SCH (04:30)
[2021-05-08] MEDS: Amlodipine 5 MG TAB PO SCH (08:37)
[2021-05-08] MEDS: PHOS-NAK 1 PKT PACK PO SCH (08:37)
[2021-05-08] MEDS: Aspirin 81 mg Enteric Coated Tablet PO SCH (08:37)
[2021-05-08] MEDS: Propranolol 10 MG TAB PO SCH (08:37)
[2021-05-08] MEDS: metFORMIN 500 MG TAB PO SCH (08:37)
[2021-05-08] MEDS: Amoxicillin/Potassium Clav 875 MG TAB PO SCH (08:38)
[2021-05-08] MEDS: Potassium Bicarbonate/Cit Ac 20 MEQ TAB PO SCH (08:38)
[2021-05-08] MEDS: HumaLOG 300 UNITS/3 ML VIAL SC SCH ×2 (08:38→12:21)
[2021-05-08] MEDS: Lantus 1000 UNITS/10 ML VIAL SC SCH (08:39)
[2021-05-08] MEDS: Furosemide 20 MG TAB PO SCH ×2 (08:39→14:14)
[2021-05-08] MEDS: Lisinopril 5 MG TAB PO SCH (08:40)
[2021-05-08 12:06] VITALS: BP 105/48; TEMP 96.5
[2021-05-08] MEDS: Magnesium Oxide 400 MG TAB PO SCH (12:17)
[2021-05-08] MEDS: HumaLOG 300 UNITS/3 ML VIAL SC PRN (12:21)
== END 2021-05-08 16:40 | DRG 871 ==
LOC: CSHERS 05:38 → SUATTDRO 05:38 → CSHTELE 12:23 → EEVIPCON 12:23
PROVIDERS: ADMIT Family Medicine; ATTEND Internal Medicine
DX: A41.9 Sepsis, unspecified organism (principal); J18.9 Pneumonia, unspecified organism; E87.1 Hypo-osmolality and hyponatremia; A15.9 Respiratory tuberculosis unspecified; K21.9 Gastro-esophageal reflux disease without esophagitis; I10 Essential (primary) hypertension; K74.60 Unspecified cirrhosis of liver; M19.90 Unspecified osteoarthritis, unspecified site; E11.65 Type 2 diabetes mellitus with hyperglycemia; Z20.822 Contact with and (suspected) exposure to COVID-19; B18.2 Chronic viral hepatitis C; D69.6 Thrombocytopenia, unspecified; D64.9 Anemia, unspecified; Z79.4 Long term (current) use of insulin; F11.21 Opioid dependence, in remission; F17.200 Nicotine dependence, unspecified, uncomplicated
CPT/HCPCS: 36415; 36416; 71045; 71275; 80048; 80053; 80061; 80074; 82550; 83036; 83605; 83735; 84100; 84484; 85025; 86480; 86580; 86713; 87040; 87070; 87116; 87205; 87206; 87389; 87449; 87522; 87804; 93005; 94760; 96365; 96367; 96375; J0696; J1450; J1815; J1885; J1956; J3370; J3475; J3490; J7050; U0002